=== PATIENT | female | born 1940 | race Caucasian/White ===

== ENCOUNTER 2021-08-26 14:54 | Inpatient (IN) ==
[2021-08-26 15:26] LABS: ABS Basophils 0.1 10^3/ul (0-0.2); ABS Eosinophils 0.1 10^3/ul (0-0.6); ABS Lymphocytes 0.6 10^3/ul (1.0-4.8); ABS Monocytes 0.5 10^3/ul (0-0.8); ABS Neutrophils 4.5 10^3/ul (1.5-7.7); Eosinophil % 2.2 %; Hematocrit 32 % (35-47); Hemoglobin 10.3 g/dL (12.0-16.0); Lymphocyte % 11.1 %; Mean Corpuscular HGB Conc 32 g/dL (31-36); Mean Corpuscular Hemoglobin 32 pg (27-31); Mean Corpuscular Volume 98 fL (80-97); Mean Platelet Volume 9.3 fL (7.4-10.4); Platelet Count 257 10^3/uL (150-450); Red Blood Count 3.24 10^6 /uL (3.70-4.87); Red Cell Distribution Width 16 % (10-15); White Blood Count 5.8 10^3/uL (3.5-10.8)
[2021-08-26 15:51] LABS: INR 1.45 (0.86-1.15)
[2021-08-26 16:09] LABS: Albumin 3.6 g/dL (3.2-5.2); Albumin/Globulin Ratio 1.4 (1-3); Calcium 9.6 mg/dL (8.6-10.3); Globulin 2.6 g/dL (2-4); Total Bilirubin 0.4 mg/dL (0.2-1.0); Total Protein 6.2 g/dL (6.4-8.9); eGFR CKD-EPI 49.6 (>60)
[2021-08-26 16:14] LABS: Potassium 4.8 mmol/L (3.5-5.0)
[2021-08-26] MEDS ORDERED: Furosemide 40 mg/4 ml IV VIAL IV ONE (16:20)
[2021-08-26] MEDS ORDERED: Metoprolol Tartrate 5 mg VIAL 5 ml VIAL (1 mg/ml) IV ONE (17:11)
[2021-08-26] MEDS ORDERED: Nitro 2% OINT (Nitroglycerin) 1 INCH/PAK TOPICAL ONE (17:11)
[2021-08-26] MEDS ORDERED: Dextrose 50% Syringe 50 ml 25 GM/50 ML SYRINGE IV PUSH PRN (17:21)
[2021-08-26 17:32] LABS: High Sensitivity Troponin 1 Hr 31 pg/mL (<15)
[2021-08-26] MEDS ORDERED: Metoprolol Tartrate 5 mg VIAL 5 ml VIAL (1 mg/ml) IV PRN (17:49)
[2021-08-26 17:50] LABS: HDL Cholesterol 45.9 mg/dL
[2021-08-26 18:26] LABS: TSH Ultra Thyroid Stim Horm 0.59 mcIU/mL (0.34-5.60)
[2021-08-26 18:50] LABS: C Reactive Protein 60.89 mg/L (<8.01)
[2021-08-26] MEDS: FORMOTEROL INH SCH (19:58)
[2021-08-26] MEDS: Albuterol 2.5mg/3 ml (0.083%) NEB.SOLN INH SCH (19:58)
[2021-08-26] MEDS: Insulin GLARGINE 100 un/ml 10 ml VIAL SUBCUT SCH (22:12)
[2021-08-27] MEDS: Albuterol 2.5mg/3 ml (0.083%) NEB.SOLN INH SCH ×4 (01:01→19:42)
[2021-08-27 06:58] LABS: ABS Basophils 0.1 10^3/ul (0-0.2); ABS Eosinophils 0.1 10^3/ul (0-0.6); ABS Lymphocytes 0.6 10^3/ul (1.0-4.8); ABS Monocytes 0.6 10^3/ul (0-0.8); ABS Neutrophils 4.6 10^3/ul (1.5-7.7); Eosinophil % 2.1 %; Hematocrit 35 % (35-47); Hemoglobin 11.4 g/dL (12.0-16.0); Lymphocyte % 10.5 %; Mean Corpuscular HGB Conc 33 g/dL (31-36); Mean Corpuscular Hemoglobin 32 pg (27-31); Mean Corpuscular Volume 97 fL (80-97); Mean Platelet Volume 9.3 fL (7.4-10.4); Platelet Count 270 10^3/uL (150-450); Red Blood Count 3.61 10^6 /uL (3.70-4.87); Red Cell Distribution Width 16 % (10-15)
[2021-08-27 07:28] LABS: Calcium 9.7 mg/dL (8.6-10.3); Magnesium 1.9 mg/dL (1.9-2.7); Potassium 4.4 mmol/L (3.5-5.0); eGFR CKD-EPI 43.9 (>60)
[2021-08-27] MEDS: Furosemide 40 mg/4 ml IV VIAL IV SCH (08:54)
[2021-08-27] MEDS: Potassium Chlor 20 meq TAB.ER PO SCH (09:25)
[2021-08-27] MEDS: FORMOTEROL INH SCH ×2 (09:37→22:49)
[2021-08-27] MEDS: Insulin GLARGINE 100 un/ml 10 ml VIAL SUBCUT SCH (20:39)
[2021-08-28] MEDS: Albuterol 2.5mg/3 ml (0.083%) NEB.SOLN INH SCH ×4 (00:52→21:08)
[2021-08-28 06:06] LABS: ABS Eosinophils 0.1 10^3/ul (0-0.6); ABS Lymphocytes 0.7 10^3/ul (1.0-4.8); ABS Monocytes 0.7 10^3/ul (0-0.8); ABS Neutrophils 4.4 10^3/ul (1.5-7.7); Eosinophil % 2.2 %; Hematocrit 33 % (35-47); Hemoglobin 10.6 g/dL (12.0-16.0); Lymphocyte % 12.3 %; Mean Corpuscular HGB Conc 32 g/dL (31-36); Mean Corpuscular Hemoglobin 31 pg (27-31); Mean Corpuscular Volume 97 fL (80-97); Mean Platelet Volume 9.3 fL (7.4-10.4); Platelet Count 255 10^3/uL (150-450); Red Cell Distribution Width 16 % (10-15)
[2021-08-28 06:35] LABS: Calcium 9.3 mg/dL (8.6-10.3); Potassium 4.4 mmol/L (3.5-5.0); eGFR CKD-EPI 35.1 (>60)
[2021-08-28] MEDS: FORMOTEROL INH SCH ×2 (07:30→21:08)
[2021-08-28] MEDS: Furosemide 40 mg/4 ml IV VIAL IV SCH (08:20)
[2021-08-28] MEDS: Potassium Chlor 20 meq TAB.ER PO SCH (08:20)
[2021-08-28] MEDS ORDERED: Albuterol/Ipratropium NEB.SOL (2.5/0.5 MG) 3 ML NEB.SOLN INH PRN (17:11)
[2021-08-28] MEDS: guaiFENesin DM SUGAR FREE 100 MG/10 MG 5 ML UDC PO PRN (18:30)
[2021-08-28] MEDS: Insulin GLARGINE 100 un/ml 10 ml VIAL SUBCUT SCH (20:52)
[2021-08-28] MEDS: Budesonide NEB 0.5 MG/2 ML NEB.SOLN INH SCH (21:08)
[2021-08-29] MEDS: Albuterol 2.5mg/3 ml (0.083%) NEB.SOLN INH SCH ×4 (01:47→21:01)
[2021-08-29 06:00] LABS: ABS Basophils 0.1 10^3/ul (0-0.2); ABS Eosinophils 0.2 10^3/ul (0-0.6); ABS Lymphocytes 0.8 10^3/ul (1.0-4.8); ABS Monocytes 0.7 10^3/ul (0-0.8); Eosinophil % 3.5 %; Hematocrit 31 % (35-47); Hemoglobin 10.1 g/dL (12.0-16.0); Lymphocyte % 13.3 %; Mean Corpuscular HGB Conc 33 g/dL (31-36); Mean Corpuscular Hemoglobin 32 pg (27-31); Mean Corpuscular Volume 97 fL (80-97); Mean Platelet Volume 9.3 fL (7.4-10.4); Nucleated Red Blood Cells % 0.1; Platelet Count 256 10^3/uL (150-450); Red Blood Count 3.18 10^6 /uL (3.70-4.87); Red Cell Distribution Width 15 % (10-15); White Blood Count 5.7 10^3/uL (3.5-10.8)
[2021-08-29] MEDS: guaiFENesin DM SUGAR FREE 100 MG/10 MG 5 ML UDC PO PRN ×2 (06:28→17:23)
[2021-08-29 06:30] LABS: Calcium 9.1 mg/dL (8.6-10.3); Potassium 4.4 mmol/L (3.5-5.0); eGFR CKD-EPI 36.9 (>60)
[2021-08-29] MEDS: FORMOTEROL INH SCH ×2 (07:10→20:48)
[2021-08-29] MEDS: SPIRIVA Respimat (tiotropium) 2.5 mcg/inh Inhaler INH SCH (07:14)
[2021-08-29] MEDS: Budesonide NEB 0.5 MG/2 ML NEB.SOLN INH SCH ×2 (07:14→20:48)
[2021-08-29] MEDS: Furosemide 40 mg/4 ml IV VIAL IV SCH (08:59)
[2021-08-29] MEDS: Potassium Chlor 20 meq TAB.ER PO SCH (09:06)
[2021-08-29] MEDS: CMCS: Anastrozole 1 mg TAB (NF) PO SCH (09:09)
[2021-08-29] MEDS ORDERED: Furosemide 40 mg/4 ml IV VIAL IV ONE (18:09)
[2021-08-29] MEDS: Insulin GLARGINE 100 un/ml 10 ml VIAL SUBCUT SCH (20:25)
[2021-08-30] MEDS: Albuterol 2.5mg/3 ml (0.083%) NEB.SOLN INH SCH ×6 (02:33→19:39)
[2021-08-30 05:21] LABS: ABS Basophils 0.1 10^3/ul (0-0.2); ABS Eosinophils 0.2 10^3/ul (0-0.6); ABS Lymphocytes 0.7 10^3/ul (1.0-4.8); ABS Monocytes 0.6 10^3/ul (0-0.8); ABS Neutrophils 3.2 10^3/ul (1.5-7.7); Eosinophil % 4.1 %; Hematocrit 32 % (35-47); Hemoglobin 10.2 g/dL (12.0-16.0); Lymphocyte % 15.5 %; Mean Corpuscular HGB Conc 32 g/dL (31-36); Mean Corpuscular Hemoglobin 31 pg (27-31); Mean Corpuscular Volume 97 fL (80-97); Mean Platelet Volume 9.3 fL (7.4-10.4); Nucleated Red Blood Cells % 0.1; Platelet Count 244 10^3/uL (150-450); Red Blood Count 3.33 10^6 /uL (3.70-4.87); Red Cell Distribution Width 15 % (10-15); White Blood Count 4.8 10^3/uL (3.5-10.8)
[2021-08-30 05:47] LABS: Albumin 3.3 g/dL (3.2-5.2); Albumin/Globulin Ratio 1.4 (1-3); Calcium 9.3 mg/dL (8.6-10.3); Globulin 2.4 g/dL (2-4); Potassium 4.5 mmol/L (3.5-5.0); Total Bilirubin 0.3 mg/dL (0.2-1.0); Total Protein 5.7 g/dL (6.4-8.9); eGFR CKD-EPI 35.4 (>60)
[2021-08-30] MEDS: FORMOTEROL INH SCH ×2 (08:58→19:39)
[2021-08-30] MEDS: Budesonide NEB 0.5 MG/2 ML NEB.SOLN INH SCH ×2 (08:58→19:39)
[2021-08-30] MEDS ORDERED: Furosemide 40 mg/4 ml IV VIAL IV SCH (09:00)
[2021-08-30] MEDS: SPIRIVA Respimat (tiotropium) 2.5 mcg/inh Inhaler INH SCH (09:06)
[2021-08-30] MEDS: Al Hydrox/Mg Hydrox/Simet LIQ 30 ML UDC PO PRN (09:39)
[2021-08-30] MEDS: CMCS: Anastrozole 1 mg TAB (NF) PO SCH (09:40)
[2021-08-30] MEDS: Potassium Chlor 20 meq TAB.ER PO SCH (09:42)
[2021-08-30 11:47] LABS: Ferritin 441.1 ng/mL (11-307)
[2021-08-30 13:39] LABS: Magnesium 1.9 mg/dL (1.9-2.7)
[2021-08-30] MEDS ORDERED: Albuterol/Ipratropium NEB.SOL (2.5/0.5 MG) 3 ML NEB.SOLN INH SCH (15:30)
[2021-08-30 16:21] LABS: Free T4 1.47 ng/dL (0.61-1.12)
[2021-08-30] MEDS ORDERED: Furosemide 40 mg/4 ml IV VIAL IV ONE (17:00)
[2021-08-30] MEDS: Insulin GLARGINE 100 un/ml 10 ml VIAL SUBCUT SCH (20:44)
[2021-08-31 01:59] LABS: Urine Appearance Clear; Urine Bilirubin Negative (Negative); Urine Blood Negative (Negative); Urine Color Yellow; Urine Glucose 2+ (500mg/dL) (Negative); Urine Ketones Negative (Negative); Urine Nitrite Negative (Negative); Urine Protein Negative (Negative); Urine Urobilinogen 0.2 (Negative) (Negative)
[2021-08-31] MEDS ORDERED: Levothyroxine 100 MCG/5 ML VIAL IV SCH (06:00)
[2021-08-31] MEDS: Albuterol HFA INHALER 8 gm MDI INH PRN (06:04)
[2021-08-31] MEDS: FORMOTEROL INH SCH ×2 (06:53→20:09)
[2021-08-31] MEDS: Albuterol 2.5mg/3 ml (0.083%) NEB.SOLN INH SCH ×3 (06:54→20:12)
[2021-08-31] MEDS: SPIRIVA Respimat (tiotropium) 2.5 mcg/inh Inhaler INH SCH (06:56)
[2021-08-31] MEDS: Budesonide NEB 0.5 MG/2 ML NEB.SOLN INH SCH ×2 (06:56→20:17)
[2021-08-31] MEDS: CMCS: Anastrozole 1 mg TAB (NF) PO SCH (07:35)
[2021-08-31] MEDS ORDERED: Bumetanide IV 0.25 MG/ML 4 ml VIAL (1 mg) SLOW PUSH SCH (09:00)
[2021-08-31] MEDS ORDERED: Furosemide 40 mg/4 ml IV VIAL IV SCH (09:00)
[2021-08-31 10:05] LABS: ABS Basophils 0.1 10^3/ul (0-0.2); ABS Lymphocytes 0.5 10^3/ul (1.0-4.8); ABS Monocytes 0.5 10^3/ul (0-0.8); ABS Neutrophils 4.7 10^3/ul (1.5-7.7); Eosinophil % 0.3 %; Hematocrit 34 % (35-47); Hemoglobin 10.8 g/dL (12.0-16.0); Lymphocyte % 9.1 %; Mean Corpuscular HGB Conc 32 g/dL (31-36); Mean Corpuscular Hemoglobin 31 pg (27-31); Mean Corpuscular Volume 98 fL (80-97); Mean Platelet Volume 9.4 fL (7.4-10.4); Platelet Count 287 10^3/uL (150-450); Red Blood Count 3.47 10^6 /uL (3.70-4.87); Red Cell Distribution Width 15 % (10-15); White Blood Count 5.8 10^3/uL (3.5-10.8)
[2021-08-31 10:54] LABS: Albumin 3.8 g/dL (3.2-5.2); Albumin/Globulin Ratio 1.3 (1-3); Calcium 9.7 mg/dL (8.6-10.3); Globulin 2.9 g/dL (2-4); Total Bilirubin 0.3 mg/dL (0.2-1.0); Total Protein 6.7 g/dL (6.4-8.9); eGFR CKD-EPI 32.5 (>60)
[2021-08-31 10:55] LABS: Potassium 5.4 mmol/L (3.5-5.0)
[2021-08-31] MEDS ORDERED: Propofol 10 MG/ML 20 ML BTL ONE (11:54)
[2021-08-31 17:41] LABS: Glucose Confirmatory 483 mg/dL (70-100)
[2021-08-31] MEDS ORDERED: SODIUM ZIRCONIUM CYCLOSILICATE 10 GM PACKET PO ONE (17:49)
[2021-08-31] MEDS: guaiFENesin DM SUGAR FREE 100 MG/10 MG 5 ML UDC PO PRN (19:42)
[2021-08-31] MEDS: Insulin GLARGINE 100 un/ml 10 ml VIAL SUBCUT SCH (21:55)
[2021-09-01] MEDS: Albuterol HFA INHALER 8 gm MDI INH PRN (05:36)
[2021-09-01 05:51] LABS: ABS Basophils 0.1 10^3/ul (0-0.2); ABS Eosinophils 0.1 10^3/ul (0-0.6); ABS Lymphocytes 0.8 10^3/ul (1.0-4.8); ABS Monocytes 0.7 10^3/ul (0-0.8); ABS Neutrophils 5.3 10^3/ul (1.5-7.7); Eosinophil % 1.5 %; Hematocrit 33 % (35-47); Hemoglobin 10.2 g/dL (12.0-16.0); Lymphocyte % 10.9 %; Mean Corpuscular HGB Conc 31 g/dL (31-36); Mean Corpuscular Hemoglobin 31 pg (27-31); Mean Corpuscular Volume 98 fL (80-97); Mean Platelet Volume 9.7 fL (7.4-10.4); Platelet Count 269 10^3/uL (150-450); Red Blood Count 3.31 10^6 /uL (3.70-4.87); Red Cell Distribution Width 15 % (10-15); White Blood Count 6.9 10^3/uL (3.5-10.8)
[2021-09-01 06:13] LABS: Potassium 4.8 mmol/L (3.5-5.0)
[2021-09-01] MEDS: Albuterol HFA INHALER 8 gm MDI INH SCH ×3 (08:30→21:23)
[2021-09-01] MEDS: SPIRIVA Respimat (tiotropium) 2.5 mcg/inh Inhaler INH SCH (08:31)
[2021-09-01] MEDS: Budesonide NEB 0.5 MG/2 ML NEB.SOLN INH SCH ×2 (08:31→21:23)
[2021-09-01] MEDS: FORMOTEROL INH SCH ×2 (08:31→21:23)
[2021-09-01] MEDS: CMCS: Anastrozole 1 mg TAB (NF) PO SCH ×2 (10:17→10:23)
[2021-09-01] MEDS: Insulin GLARGINE 100 un/ml 10 ml VIAL SUBCUT SCH (19:38)
[2021-09-01] MEDS: Al Hydrox/Mg Hydrox/Simet LIQ 30 ML UDC PO PRN (19:39)
[2021-09-02] MEDS: Albuterol 2.5mg/3 ml (0.083%) NEB.SOLN INH PRN (05:31)
[2021-09-02 07:02] LABS: ABS Basophils 0.1 10^3/ul (0-0.2); ABS Eosinophils 0.1 10^3/ul (0-0.6); ABS Lymphocytes 0.9 10^3/ul (1.0-4.8); ABS Monocytes 0.7 10^3/ul (0-0.8); ABS Neutrophils 5.4 10^3/ul (1.5-7.7); Eosinophil % 0.8 %; Hematocrit 32 % (35-47); Hemoglobin 10.4 g/dL (12.0-16.0); Lymphocyte % 13.1 %; Mean Corpuscular HGB Conc 33 g/dL (31-36); Mean Corpuscular Hemoglobin 32 pg (27-31); Mean Corpuscular Volume 97 fL (80-97); Mean Platelet Volume 9.5 fL (7.4-10.4); Platelet Count 278 10^3/uL (150-450); Red Blood Count 3.26 10^6 /uL (3.70-4.87); Red Cell Distribution Width 15 % (10-15); White Blood Count 7.2 10^3/uL (3.5-10.8)
[2021-09-02 07:16] LABS: Calcium 9.6 mg/dL (8.6-10.3); Potassium 4.6 mmol/L (3.5-5.0); eGFR CKD-EPI 39.9 (>60)
[2021-09-02] MEDS: FORMOTEROL INH SCH ×2 (07:18→19:51)
[2021-09-02] MEDS: Budesonide NEB 0.5 MG/2 ML NEB.SOLN INH SCH ×2 (07:24→19:51)
[2021-09-02] MEDS: Albuterol HFA INHALER 8 gm MDI INH SCH ×3 (07:25→19:49)
[2021-09-02] MEDS: SPIRIVA Respimat (tiotropium) 2.5 mcg/inh Inhaler INH SCH (07:25)
[2021-09-02] MEDS: CMCS: Anastrozole 1 mg TAB (NF) PO SCH (09:00)
[2021-09-02] MEDS ORDERED: Dextrose 50% Syringe 50 ml 25 GM/50 ML SYRINGE IV PUSH PRN (17:16)
[2021-09-02] MEDS: Insulin GLARGINE 100 un/ml 10 ml VIAL SUBCUT SCH (21:23)
[2021-09-03] MEDS: Budesonide NEB 0.5 MG/2 ML NEB.SOLN INH SCH ×2 (07:09→20:54)
[2021-09-03] MEDS: FORMOTEROL INH SCH ×2 (07:09→20:47)
[2021-09-03] MEDS: SPIRIVA Respimat (tiotropium) 2.5 mcg/inh Inhaler INH SCH (07:13)
[2021-09-03] MEDS: Albuterol HFA INHALER 8 gm MDI INH SCH ×3 (07:14→20:56)
[2021-09-03] MEDS: CMCS: Anastrozole 1 mg TAB (NF) PO SCH (10:24)
[2021-09-03] MEDS ORDERED: Amiodarone 400 mg TAB PO ONE (10:56)
[2021-09-03 11:10] LABS: Calcium 9.4 mg/dL (8.6-10.3); Potassium 4.8 mmol/L (3.5-5.0); eGFR CKD-EPI 37.6 (>60)
[2021-09-03] MEDS: Albuterol 2.5mg/3 ml (0.083%) NEB.SOLN INH PRN (20:49)
[2021-09-03] MEDS: Insulin GLARGINE 100 un/ml 10 ml VIAL SUBCUT SCH (21:23)
[2021-09-04] MEDS: Budesonide NEB 0.5 MG/2 ML NEB.SOLN INH SCH ×2 (07:14→19:49)
[2021-09-04] MEDS: FORMOTEROL INH SCH ×2 (07:14→19:47)
[2021-09-04] MEDS: Albuterol HFA INHALER 8 gm MDI INH SCH ×3 (07:17→19:46)
[2021-09-04] MEDS: SPIRIVA Respimat (tiotropium) 2.5 mcg/inh Inhaler INH SCH (07:18)
[2021-09-04] MEDS ORDERED: Bumetanide IV 0.25 MG/ML 4 ml VIAL (1 mg) SLOW PUSH SCH (12:00)
[2021-09-04 12:15] LABS: Vitamin D Total 25(OH) 23.5 ng/mL (20-50)
[2021-09-04] MEDS ORDERED: Midazolam 10 mg/10 ml VIAL 1 mg/ml 10 ml VIAL (10 mg) ONE (12:30)
[2021-09-04] MEDS ORDERED: Ondansetron 4 mg VIAL 2 MG/ML 2 ml VIAL ONE (12:30)
[2021-09-04] MEDS ORDERED: Propofol 10 MG/ML 20 ML BTL ONE (12:30)
[2021-09-04] MEDS ORDERED: fentaNYL 250 mcg/5 ml 50 MCG/ML 5 ml VIAL (250 MCG) ONE (12:30)
[2021-09-04] MEDS ORDERED: Lidocaine 2% PF 5 ML VIAL ONE (12:32)
[2021-09-04] MEDS: CMCS: Anastrozole 1 mg TAB (NF) PO SCH (16:05)
[2021-09-04] MEDS: Insulin GLARGINE 100 un/ml 10 ml VIAL SUBCUT SCH (20:15)
[2021-09-05] MEDS: Albuterol HFA INHALER 8 gm MDI INH SCH ×4 (00:28→19:34)
[2021-09-05 06:14] LABS: Calcium 9.4 mg/dL (8.6-10.3); Magnesium 2.1 mg/dL (1.9-2.7); Potassium 4.3 mmol/L (3.5-5.0); eGFR CKD-EPI 30.6 (>60)
[2021-09-05] MEDS: FORMOTEROL INH SCH ×2 (08:00→19:34)
[2021-09-05] MEDS: SPIRIVA Respimat (tiotropium) 2.5 mcg/inh Inhaler INH SCH (08:00)
[2021-09-05] MEDS: Budesonide NEB 0.5 MG/2 ML NEB.SOLN INH SCH ×2 (08:00→19:34)
[2021-09-05] MEDS: Cholecalciferol (VIT D3) 1,000 unit TAB PO SCH (08:45)
[2021-09-05] MEDS: CMCS: Anastrozole 1 mg TAB (NF) PO SCH (08:48)
[2021-09-05 17:32] LABS: Glucose Confirmatory 438 mg/dL (70-100)
[2021-09-05] MEDS: Insulin GLARGINE 100 un/ml 10 ml VIAL SUBCUT SCH (21:04)
[2021-09-06 06:30] LABS: Calcium 9.2 mg/dL (8.6-10.3); eGFR CKD-EPI 41.4 (>60)
[2021-09-06] MEDS: Budesonide NEB 0.5 MG/2 ML NEB.SOLN INH SCH (06:46)
[2021-09-06] MEDS: SPIRIVA Respimat (tiotropium) 2.5 mcg/inh Inhaler INH SCH (06:47)
[2021-09-06] MEDS: Albuterol HFA INHALER 8 gm MDI INH SCH ×3 (06:47→13:17)
[2021-09-06] MEDS: FORMOTEROL INH SCH (06:52)
[2021-09-06] MEDS: Cholecalciferol (VIT D3) 1,000 unit TAB PO SCH (07:39)
[2021-09-06] MEDS: CMCS: Anastrozole 1 mg TAB (NF) PO SCH (07:41)
[2021-09-06 12:19] VITALS: BP 131/48
== END 2021-09-06 14:37 | disposition home or self-care (01) | DRG 291 ==
LOC: ED 14:54 → SUATTDRO 17:25 → EDHOLD 17:25 → MEDTELE 21:20
PROVIDERS: ADMIT Pediatrics; ATTEND Hospitalist
PROC: CARDVER (ICD-10-PCS; 2021-08-31 14:00)